=== PATIENT | male | born 1950 ===

== ENCOUNTER 2019-01-22 12:55 | Inpatient (IN) | payer OTHER, MEDICARE ==
[~2019-01-22] VITALS: Ht 177.8 cm; Wt 90.8 kg
[2019-01-22] MEDS ORDERED: LO-DOSE ASPIRIN81 MG PO (13:10)
[2019-01-22] MEDS ORDERED: ZYRTEC10 M2 PO (13:10)
[2019-01-22] MEDS ORDERED: GABA800 PO (13:11)
[2019-01-22] MEDS ORDERED: Norco 10-325 T1 EACH PO (13:11)
[2019-01-22] MEDS ORDERED: LEVSOD75 PO (13:12)
[2019-01-22] MEDS ORDERED: METCAR500 PO (13:13)
[2019-01-22] MEDS ORDERED: OMEPRAZOLE20 MG PO (13:13)
[2019-01-22] MEDS ORDERED: NAPR500 PO (13:13)
[2019-01-22] MEDS ORDERED: SILD50TA PO (13:14)
[2019-01-22] MEDS ORDERED: Zocor20 MG PO (13:14)
[2019-01-22] MEDS ORDERED: TERAZOSIN HCL PO (13:15)
[2019-01-22] MEDS ORDERED: CENTRUM SILVER1 EAC4 PO (15:17)
[2019-01-22] MEDS ORDERED: VIT1CAPS12 PO (15:17)
[2019-01-22 15:40] LABS: Mean Platelet Volume 8.9 fL (9.1-12.4); Platelet Count 218 K/mm3 (150-400)
[2019-01-22 15:43] LABS: International Normalized Ratio 0.98; Prothrombin Time Results 10.4 Sec (9.7-11.5)
[2019-01-22] MEDS ORDERED: Flonase 0.05% N16 GM (17:39)
--- NOTE | 2019-01-22 18:15 | NUR ---
PT ARRIVED TO ROOM 326 VIA GURNEY FROM ED. PT A/OX4, SBA INTO BED. SON AT BEDSIDE. PT DENIES ANY CHEST PAIN. PT REPORTS FEELING CONGESTED BUT NO OTHER COMPLAINTS. TELE NSR AT 77. HEPARIN GTT INFUSING, RATE VERIFIED. ATTEMPTED TO CALL CONSULT TO DR MARIN WITHOUT SUCCESS, MESSAGE LEFT ON VOICEMAIL. PT ORIENTED TO ROOM AND CALL SYSTEM, CALL LIGHT IN REACH.
--- NOTE | 2019-01-22 21:28 | NUR ---
20:57 received Critical Value from Eric in Lab - Triponin 1.090, up from 0.883 checked with Patient; denies pain, asymptomatic, PCU panel monitor reports NSR at 72 bpm, V/S: 98.4, 164/97, 95% 16-RR, 70 BPM. 21:20 Spoke to LEXI Blount and reported the above. No new orders at this time.
[2019-01-23 06:28] LABS: BASOPHILS ABSOLUTE AUTO 0.05 K/mm3 (0.00-0.23); BASOPHILS PERCENT AUTO 1 % (0-2); EOSINOPHILS ABSOLUTE AUTO 0.26 K/mm3 (0.00-0.68); EOSINOPHILS PERCENT AUTO 3 % (0-6); Hematocrit 41.5 % (37.0-53.0); Hemoglobin 13.8 g/dL (13.5-17.5); IMMATURE GRAN ABSOLUTE AUTO 0.05 K/mm3 (0.00-0.10); IMMATURE GRAN PERCENT AUTO 1 % (0-1); LYMPHOCYTES ABSOLUTE AUTO 1.73 K/mm3 (0.84-5.20); LYMPHOCYTES PERCENT AUTO 20 % (21-46); MONOCYTES ABSOLUTE AUTO 0.66 K/mm3 (0.16-1.47); MONOCYTES PERCENT AUTO 8 % (4-13); Mean Corpuscular HGB 31.6 pg (26.0-34.0); Mean Corpuscular HGB Conc 33.3 g/dL (31.5-36.5); Mean Corpuscular Volume 95 fL (80-100); NEUTROPHILS ABSOLUTE AUTO 5.74 K/mm3 (1.96-9.15); NEUTROPHILS PERCENT AUTO 68 % (41-73); Platelet Count 197 K/mm3 (150-400); RDW Coefficient Variation 13.3 % (11.7-14.2); RDW Standard Deviation 46.6 fL (35.1-46.3); Red Blood Cell Count 4.37 M/mm3 (4.30-5.90); White Blood Cell Count 8.49 K/mm3 (4.00-11.30)
[2019-01-23 06:56] LABS: Anion Gap 7 mmol/L (6-16); Blood Urea Nitrogen 17 mg/dL (8-24); Bun/Creatinine Ratio 28.6 (12.0-20.0); CHOL/HDL RATIO 3.9; CO2, Blood 23 mmol/L (21-32); Calcium, Blood 8.4 mg/dL (8.5-10.1); Chloride, Blood 107 mmol/L (98-108); Cholesterol 147 mg/dL (50-200); Glomerular Filtration Rate >60 (60-); Glucose, Blood 93 mg/dL (70-99); HDL Cholesterol 38 mg/dL (>39); LDL/HDL RATIO 2.2; Low Density Lipoprotein Chol 82 mg/dL (0-110); Potassium, Blood 3.6 mmol/L (3.5-5.5); Sodium, Blood 137 mmol/L (136-145); Triglycerides 133 mg/dL (30-160); Very Low Density Lipoprot Chol 26 mg/dL (6-32)
--- NOTE | 2019-01-23 07:45 | NUR ---
0530: REQUESTED CPAP FOR THE PATIENT. PATIENT RESTED WELL THIS SHIFT, WE ADJUSTED THE RATE OF HIS HEPARIN DRIP PER PHARMACIST DOSE ADJUSTMENT. 6AM LABS PENDING. PATIENT DENIES PAIN AND IS IN NO APPARENT DISTRESS
--- NOTE | 2019-01-23 09:28 | NUR ---
CONSULT CALLED TO DR MARIN.
--- NOTE | 2019-01-23 11:22 | NUR ---
ECHOCARDIOGRAM COMPLETED
--- NOTE | 2019-01-23 11:38 | NUR ---
DR MARIN IN TO SEE PT.
--- NOTE | 2019-01-23 12:01 | NUR ---
DR MARIN REPORTS HE WILL TAKE PT TO [facility], AIRCRAFT ENGINE TECHNICIAN NOTIFIED AND SHE IS CALLING IN THE CREW.
--- NOTE | 2019-01-23 12:31 | NUR ---
pt to biological lab technician.
--- NOTE | 2019-01-23 13:42 | NUR ---
REPORT CALLED TO JAMSHID IN PCU, PT TO TRANSFER TO PCU 15.
--- NOTE | 2019-01-23 13:46 | NUR ---
Report received from Jaspreet ANGEL. Pt still in HC for angiogram at this time.
--- NOTE | 2019-01-23 16:10 | NUR ---
Shift Summary Pt arrived to unit from at approx 1445. VSS. In no apparent sign of distress. Pt has R radial access site that is free from s/sx of bleed or hematoma. TR band in place as well as R wrist immobilizer. Pt is A&Ox4. Tolerating PO fluids well w/out c/o n/v. Pt compliant w/R wrist restrictions. Calls appropriately and repositions self. Denies any pain or CP. Family at bedside. SBA. Denies any SOB. Lungs clear and breathing e/u on RA. SR on tele. Currently resting in bed with call light within reach. Denies any further questions, complaints or requests at this time. Will continue to monitor and recover access site per orders/protocol. Will continue to monitor until report is given to gildardo ANGEL.
--- NOTE | 2019-01-24 00:29 | NUR ---
ASSUMED CARE OF PATIENT AT [facility] 1909 FROM JAMSHID Fierro RN. PATIENT ALERT AND ORIENTED X4; SBA W/ FWW TO BATHROOM. PATIENT DENIES CP/PRESSURE, PAIN ELSEWHERE, NUMBNESS, TINGLING, DIZZINESS AND NAUSEA. PATIENT S/P ANGIO W/ RIGHT RADIAL ACCESS. 2CC OF AIR REMOVED BY DAYSHIFT RN AT SHIFT CHANGE 1899; 5CC OF AIR REMOVED BY THIS RN AND TEGADERM DRESSING PLACED BY MIDNIGHT; NO S/S OF BLEEDING, HEMATOMA OR BRUISING NOTED; ARMBOARD REMAINS IN PLACE. SR ON TELE; OXYGEN SATURATION ABOVE 90% ON ROOM AIR OR ON CPAP. AT BEDSIDE SLEEPING IN RECLINER. NS INFUSING PER ORDER. PATIENT CURRENTLY RESTING IN BED; CALL LIGHT IN REACH; BED IN LOWEST POSISTION; WILL CONTINUE TO MONITOR AND ASSESS UNTIL END OF SHIFT.
[2019-01-24 04:41] LABS: Anion Gap 6 mmol/L (6-16); Blood Urea Nitrogen 16 mg/dL (8-24); Bun/Creatinine Ratio 23.2 (12.0-20.0); CO2, Blood 24 mmol/L (21-32); Calcium, Blood 8.8 mg/dL (8.5-10.1); Chloride, Blood 107 mmol/L (98-108); Creatinine, Blood 0.69 mg/dL (0.60-1.20); Glomerular Filtration Rate >60 (60-); Glucose, Blood 92 mg/dL (70-99); Potassium, Blood 3.8 mmol/L (3.5-5.5); Sodium, Blood 137 mmol/L (136-145)
--- NOTE | 2019-01-24 06:44 | NUR ---
PATIENT SLEPT ABOUT SEVEN HOURS LAST NIGHT. NO CHANGES TO RIGHT RADIAL ACCESS SITE. EKG DONE. WILL CONTINUE TO MONITOR AND ASSESS UNTIL END OF SHIFT.
--- NOTE | 2019-01-24 08:27 | NUR ---
ASUMED CARE OF PT @ 0700. PT SITTING IN BED. AT BEDSIDE. PMD TALKED TO PT ABOUT DISCHARGE. TAUGHT PT ABOUT MEDICATION ADMINISTRATION AND SMOKING CESSATION. PT RESPONDED WITH UNDERSTANDING. INSICION SITE SHOWS NO BRUISING OR SWELLING. LUNG SOUNDS NORMAL.
[2019-01-24] MEDS ORDERED: ATOR40TA PO (12:20)
[2019-01-24] MEDS ORDERED: CLOP75 PO (12:21)
[2019-01-24] MEDS ORDERED: CARV3.125 PO (12:22)
--- NOTE | 2019-01-24 13:02 | NUR ---
DISCHARGE NOTE DISCHARGE HOME D/O RECEIVED. PT AND FAMILY WAS REVEIWED ON DISCHARGE FOLLOW UP APPTS AND NEW MEDICATIONS. IV IN R AC D/C. ECHO RESULTS RECEIVED; WAITING TO BE REVEIWED BY PMD. [facility] PER PT REQUEST. WILL MONITOR UNTIL DISCHARGE IS COMPLETE.
== END 2019-01-24 14:50 | disposition home or self-care (01) | DRG 247 ==
LOC: ER 12:55 → PCU 15:21 → MEDS 15:21 → PCU 17:03 → MEDS 17:17 → PCU 01-23 13:04
PROVIDERS: Emergency Medicine; Internal Medicine Cardiovascular Disease; ADMIT Hospitalist
PROC: 4A023N7 Measurement of Cardiac Sampling and Pressure, Left Heart, Percutaneous Approach (ICD-10-PCS; principal; 2019-01-23)
PROC: 027034Z Dilation of Coronary Artery, One Artery with Drug-eluting Intraluminal Device, Percutaneous Approach (ICD-10-PCS; 2019-01-23)
PROC: B211YZZ Fluoroscopy of Multiple Coronary Arteries using Other Contrast (ICD-10-PCS; 2019-01-23)
DX: I21.4 Non-ST elevation (NSTEMI) myocardial infarction (principal); I10 Essential (primary) hypertension; N40.0 Benign prostatic hyperplasia without lower urinary tract symptoms; M54.9 Dorsalgia, unspecified; K21.9 Gastro-esophageal reflux disease without esophagitis; E03.9 Hypothyroidism, unspecified; G47.33 Obstructive sleep apnea (adult) (pediatric); R73.03 Prediabetes; G62.9 Polyneuropathy, unspecified; Z79.82 Long term (current) use of aspirin; F17.210 Nicotine dependence, cigarettes, uncomplicated; I71.4 Abdominal aortic aneurysm, without rupture
CPT/HCPCS: 36415; 80048; 80061; 83036; 84484; 85025; 85049; 85347; 85610; 85730; 93005; 93010; 93306; 93458; 94660; 94762; 96365; 99152; 99153; 99285-25; C1725; C1769; C1874; C1887; C1894; C9600; J1644; J2250; J3010; J7030; Q9967

== ENCOUNTER → 2019-04-28 | Outpatient (CLI) | payer OTHER ==
[~2019-04-28] MED LIST: ATOR40TA PO; CARV3.125 PO; CENTRUM SILVER1 EAC4 PO; CLOP75 PO; Flonase 0.05% N16 GM; GABA800 PO; LEVSOD75 PO; LO-DOSE ASPIRIN81 MG PO; METCAR500 PO; NAPR500 PO; Norco 10-325 T1 EACH PO; OMEPRAZOLE20 MG PO; SILD50TA PO; TERAZOSIN HCL PO; VIT1CAPS12 PO; ZYRTEC10 M2 PO; Zocor20 MG PO
== END ==
LOC: LAB SHORT 17:54 → LAB 17:54
DX: L08.9 Local infection of the skin and subcutaneous tissue, unspecified (principal)
CPT/HCPCS: 87070; 87077; 87186; 87205

== ENCOUNTER 2021-05-16 06:03 | Day surgery (SDC) | payer OTHER ==
[~2021-05-16] VITALS: Ht 180.3 cm; Wt 90.7 kg
[~2021-05-16 06:03] MED LIST changes: +ASPIR 8181 M1 PO; -CENTRUM SILVER1 EAC4 PO; +GABA100 PO; -GABA800 PO; +Hytrin2 MG PO; -LO-DOSE ASPIRIN81 MG PO; +MELATONIN5 M1 PO; -METCAR500 PO; +MULTI-VITAMIN1 EAC2 PO; +OMEP20ER PO; -OMEPRAZOLE20 MG PO; +OXYB5 PO; +Preservision S1 EACH PO; +Robaxin750 MG PO; +THERA-D2000 UNIT PO; +UBID10 PO; +ZINC15 PO
--- NOTE | 2021-05-16 09:58 | NUR ---
Patient up to Ambulate independently. Gait steady. Dressing to procedure site clean, dry, intact with no visible drainage, swelling, erythema or bruising noted. Discharge instructions reviewed with patient. Patient verbalizes understanding. Copy given to patient to take home. Patient States Post-Procedure ride home has been arranged. Discharged via wheelchair to private car for ride home. ALL BELONINGS RETURNEDT TO PATIENT. GAVE ONE PAIN PILL.
== END 2021-05-16 10:00 | disposition home or self-care (01) ==
LOC: ORSCMMR 06:03 → ORD 07:30 → ORSCMMR 10:00
PROVIDERS: Surgery
PROC: 0WUF0JZ Supplement Abdominal Wall with Synthetic Substitute, Open Approach (ICD-10-PCS; principal; 2021-05-16 07:30)
DX: K42.9 Umbilical hernia without obstruction or gangrene (principal)
CPT/HCPCS: A9270; C1781; J0461; J0690; J1100; J2370; J2405; J2704; J3010; J7120